=== PATIENT | female | born 1960 | race Caucasian/White ===

== ENCOUNTER 2023-07-09 19:37 | Emergency (ER) | payer BC, SELFPAY ==
[2023-07-09 19:49] VITALS: BP 177/103; PULSE 72; RESP 16; TEMP 36.5; O2SAT 99
[2023-07-09 21:58] VITALS: BP 170/87; PULSE 67; RESP 17; TEMP 36.3; O2SAT 100
[2023-07-10 00:22] VITALS: BP 158/96; PULSE 65; RESP 12; O2SAT 97
--- NOTE | 2023-07-10 01:18 | ECG_ITS ---
Measurements Intervals [place] Rate: 64 P: 35 DE: 171 QRS: 0 QRSD: 90 T: 68 QT: 389 QTc: 403 Interpretive Statements SINUS RHYTHM CONSIDER INFERIOR INFARCT, AGE INDETERMINATE BORDERLINE ST-T WAVE ABNORMALITY- ANTEROLAT/HIGH LAT LEADS BASELINE ARTIFACT- I, III, V4-V5 ABNORMAL ECG NO PREVIOUS ECG AVAILABLE FOR COMPARISON Electronically Signed On 07-10-2023 6:33:34 CDT by Livan Villarreal D.O.
[2023-07-10 01:56] VITALS: BP 142/94; PULSE 66; RESP 14; O2SAT 96
[2023-07-10] MEDS: MECLIZINE HCL 25 MG TABLET PO (01:57)
[2023-07-10 02:08] LABS: Basophils Percent Auto 0.6 % (0.2-1.2); Eosinophils Absolute Auto 0.2 K/mm3 (0-0.3); Eosinophils Percent Auto 3.2 % (0-4.4); Hematocrit 42.6 % (37.0-47.0); Hemoglobin 13.7 g/dL (12.0-15.0); Immature Granulocyte Absolute 0.03 K/mm3 (0.00-0.031); Immature Granulocyte Percent A 0.5 % (0-0.5); Lymphocytes Absolute Auto 2.37 K/mm3 (0.9-3.2); Lymphocytes Percent Auto 38.3 % (18.3-44.2); Mean Corpuscular HGB Conc 32.2 g/dl (32-36); Mean Corpuscular Hemoglobin 29.5 pg (26-34); Mean Corpuscular Volume 91.8 fl (80-100); Mean Platelet Volume 9.9 fl (7.4-10.4); Monocytes Absolute Auto 0.5 K/mm3 (0.1-0.6); Monocytes Percent Auto 7.9 % (2.6-8.5); Neutrophils Absolute Auto 3.1 K/mm3 (1.3-6.7); Neutrophils Percent Auto 49.5 % (45.5-73.1); Platelet Count Result 249 k/mm3 (150-375); Red Blood Count 4.64 M/mm3 (4.2-5.4); White Blood Count 6.2 K/mm3 (4.5-10.0)
[2023-07-10 02:15] LABS: Appearance Urine Clear (Clear); Bacteria Urine None Seen /hpf; Bilirubin Urine Negative (Negative); Blood Urine 1+ (Negative); Color Urine Yellow (Yellow); Glucose Urine UA Negative (Negative); Ketones Urine Negative (Negative); Leukocyte Esterase Ur Negative LEU/UL (Negative); Nitrate Urine Negative (Negative); Non Pathogenic Casts 0-2; Protein Urine Negative (Negative); Specific Grav Ur 1.015 (1.001-1.035); Squamous Epithelial Cell Urine None seen /hpf (Few); WBC Urine 0-5 /hpf; pH Urine 7.5 (5.0-9.0)
[2023-07-10 02:19] LABS: Alanine Aminotransferase 23 U/L (6-35); Albumin Level 4.2 g/dL (3.5-5.1); Alkaline Phosphatase 96 U/L (38-126); Anion Gap 5 mmol/L (8-16); Aspartate Amino Transferase 25 U/L (14-36); Bilirubin,Total 0.8 mg/dL (0.2-1.3); Blood Urea Nitrogen 14 mg/dL (7-17); Calcium 8.8 mg/dL (8.4-10.2); Carbon Dioxide 28 mmol/L (22-30); Chloride 107 mmol/L (98-107); Estimated CRCL calculation 68 ml/min; Estimated Glomerular Filt Rate > 60; Glucose 110 mg/dL (65-110); Potassium 3.5 mmol/L (3.4-5.0); Sodium 140 mmol/L (137-145)
[2023-07-10 02:20] LABS: Add Urine Microscopic? YES
--- NOTE | 2023-07-10 02:39 | ED.GENADULT ---
HPI - General Adult General Chief complaint: Dizziness Stated complaint: dizziness Time Seen by Provider: 07/10/23 01:08 History of Present Illness HPI narrative: Patient 62-year-old female who presents emergency department with chief complaint of dizziness. The patient reports that tonight she had an episode where she had a spinning sensation lasted for a less than a minute and then had another episode. The patient denies focal neurological deficit patient denies chest pain denies shortness of breath denies vomiting or diarrhea. The patient reports her hearing is normal the patient reports currently her symptoms have resolved Related Data Allergies Allergy/AdvReac Type Severity Reaction Status Date / Time No Known Allergies Allergy Verified 07/10/23 00:17 Review of Systems Review of Systems: A 10 system review of systems was completed on the patient and is negative except for what is stated in the HPI. Nursing and ancillary documentation was reviewed. Exam Narrative: GENERAL: Well-appearing, well-nourished, and in no acute distress. HEAD: Normocephalic, atraumatic. EYES: PERRLA and EOMI. ENT: Nares clear, no rhinorrhea or epistaxis. Mucous membranes moist. NECK: Supple. CHEST: Clear to auscultation. No respiratory distress. HEART: Regular rate and rhythm. No murmur heard. Normal peripheral pulses. ABDOMEN: Soft, nontender, nondistended, normal active bowel sounds. EXTREMITIES: Normal range of motion. No edema. SKIN: Warm, dry, no rash. NEURO: No focal deficits. Alert and oriented x3. PSYCH: Normal mood and affect. Course Vital Signs Vital signs: Vital Signs Temperature 36.5 C 07/09/23 19:49 Pulse Rate 72 07/09/23 19:49 Respiratory Rate 16 07/09/23 19:49 Blood Pressure 177/103 H 07/09/23 19:49 Pulse Oximetry 99 07/09/23 19:49 Oxygen Delivery Room Air 07/09/23 19:49 Temperature 36.3 C L 07/09/23 21:58 Pulse Rate 60 07/10/23 03:28 Respiratory Rate 12 07/10/23 03:28 Blood Pressure 146/84 H 07/10/23 03:28 Pulse Oximetry 98 07/10/23 03:28 Oxygen Delivery Room Air 07/09/23 19:49 Medical Decision Making [facility] Narrative Medical decision making narrative: Differential diagnosis includes vertigo, myxedema, electrolyte abnormality UTI, dehydration Studies were obtained on the patient which showed a normal CBC electrolytes are within normal limits the patient's TSH was 12.2 Urinalysis showed no evidence of UTI The patient's physical exam is consistent with vertigo patient is currently asymptomatic the patient will be given a prescription for meclizine and also will be restarted on levothyroxine. Patient should follow-up with her primary care provider for recheck of her TSH as levothyroxine may need to be adjusted Vital Signs Vital Signs: Vital Signs Temperature 36.5 C 07/09/23 19:49 Pulse Rate 72 07/09/23 19:49 Respiratory Rate 16 07/09/23 19:49 Blood Pressure 177/103 H 07/09/23 19:49 Pulse Oximetry 99 07/09/23 19:49 Oxygen Delivery Room Air 07/09/23 19:49 Temperature 36.3 C L 07/09/23 21:58 Pulse Rate 60 07/10/23 03:28 Respiratory Rate 12 07/10/23 03:28 Blood Pressure 146/84 H 07/10/23 03:28 Pulse Oximetry 98 07/10/23 03:28 Oxygen Delivery Room Air 07/09/23 19:49 Lab Data 07/10/23 01:55 07/10/23 01:55 Labs: Lab Results 07/10/23 07/10/23 07/10/23 Range/Units 01:55 01:55 01:55 WBC 6.2 (4.5-10.0) K/mm3 RBC 4.64 (4.2-5.4) M/mm3 Hgb 13.7 (12.0-15.0) g/dL Hct 42.6 (37.0-47.0) % MCV 91.8 (80-100) fl MCH 29.5 (26-34) pg MCHC 32.2 (32-36) g/dl RDW 14.0 (11.5-14.5) % Plt Count 249 (150-375) k/mm3 MPV 9.9 (7.4-10.4) fl Immature Gran % (Auto) 0.5 (0-0.5) % Neut % (Auto) 49.5 (45.5-73.1) % Lymph % (Auto) 38.3 (18.3-44.2) % [place] % (Auto) 7.9 (2.6-8.5) % Eos % (Auto) 3.2 (0-4.4) % Baso % (Auto) 0.6
[2023-07-10 03:28] VITALS: BP 146/84; PULSE 60; RESP 12; O2SAT 98
[2023-07-10 03:55] VITALS: BP 147/79; PULSE 62; RESP 14; O2SAT 99
== END 2023-07-10 03:56 | disposition home or self-care (01) ==
PROVIDERS: Emergency Provider Emergency Medicine
DX: H81.10 Benign paroxysmal vertigo, unspecified ear (principal); E03.9 Hypothyroidism, unspecified
CPT/HCPCS: 36415; 80053; 81001; 83735; 84443; 85025; 93005; 99283; A9270